=== PATIENT | female | born 1950 | race Caucasian/White ===

== ENCOUNTER → 2020-12-10 | Outpatient (CLI) | payer MEDICARE, OTHER ==
[~2020-12-10] MED LIST: ATEN100 PO; ATENOLOL; CHLO25B PO; CHOL10002 PO; FERROUS SULFATE PO; FISH OIL 1,2001 EACH PO; HYDACE5 PO; LISI20 PO; LISINOPRIL; META800 PO; NAPR500 PO
== END | disposition home or self-care (01) ==
LOC: LAB SHORT 08:43 → PLD 08:43
DX: L57.0 Actinic keratosis (principal)
CPT/HCPCS: 88305

== ENCOUNTER → 2021-07-15 | Outpatient (CLI) | payer MEDICARE, OTHER | LOC: LAB SHORT 12:50 → LAB 12:50 | DX: D48.5 Neoplasm of uncertain behavior of skin (principal); C44.311 Basal cell carcinoma of skin of nose; Z88.5 Allergy status to narcotic agent; Z88.2 Allergy status to sulfonamides; Z91.038 Other insect allergy status | CPT/HCPCS: 88305 ==